=== PATIENT | female | born 1965 | race Caucasian/White ===

== ENCOUNTER 2023-06-13 05:55 | Day surgery (SDC) | payer OTHER, SELFPAY ==
[2023-06-13] MEDS: Lactated Ringers 1,000 ML 15 ML IV (06:25)
[2023-06-13 06:26] VITALS: BP 130/81; PULSE 74; RESP 18; TEMP 36.2; O2SAT 100; BMI 30.2
--- NOTE | 2023-06-13 07:08 | PCM.HP.BLA ---
History and Physical Date of Admission: 06/13/23 Pt presents with upper eyelid dermatochalasis. The patient is examined and there are no changes from the exam dated 05/27/23. Assessment & Plan Assessment/Plan (1) Limited peripheral vision: QUALIFIERS: Laterality: bilateral Qualified Code(s): H53.453 - Other localized visual field defect, bilateral (2) Dermatochalasis of both eyelids: QUALIFIERS: Eyelid: upper Qualified Code(s): H02.831 - Dermatochalasis of right upper eyelid; H02.834 - Dermatochalasis of left upper eyelid PLAN: Plan Dermatochalasis obstructing vision Informed consent obtained. Pt for bilateral upper blepharoplasty.
[2023-06-13] MEDS: Clindamycin 900 MG/50 ML BAG 75 MG IV (07:39)
[2023-06-13] MEDS: Tetracaine 0.5% Ophthalmic Bottle OPHTHALMIC (07:55)
[2023-06-13] MEDS: Povidone Iodine 30 ML Opthalmic Sol 1 DRP (08:00)
[2023-06-13] MEDS: Petrolatum,White 3.75GM OPTH.TUBE 1 APPLIC OPHTHALMIC (08:05)
[2023-06-13] MEDS: Lidocaine 1% /Epi 1:100 (20ml) 20 ML Vial (08:07)
[2023-06-13] MEDS: Epinephrine (1 mg/ml) 1 MG/ML VIAL (08:10)
[2023-06-13] MEDS: Erythromycin Base 1 OPTH.TUBE 3.5 APPLIC OPHTHALMIC (09:18)
[2023-06-13 09:35] VITALS: BP 124/73; BP 130/81; PULSE 70; RESP 16; TEMP 36.6; O2SAT 100
--- NOTE | 2023-06-13 09:36 | DCINST_ITS ---
Discharge Instructions Diet Discharge Diet: No restrictions Activity Additional Activity Instructions:: Keep head elevated (recliner position) to reduce bruising and swelling. Keep the cold compresses on continuously today. Follow instructions given in the office. Follow Up Care Please Follow Up With: Sonam Adair MD When: as directed Test Results: Test results from this visit will be discussed in further detail at your follow- up appointment, if applicable. Discharge Plan Admission Attending Provider: Sonam Adair Primary Care Provider: STEPHANIE THORNTON Discharge Orders/Prescriptions Prescriptions: No Action minoxidil 5 % foam 1 ea topical BID Patient Comments: POST-OP cephalexin 500 mg capsule 500 mg PO BID Qty: 10 0RF erythromycin 5 mg/gram (0.5 %) ointment 1 applic ophthalmic (eye) DAILY Qty: 3.5 0RF Rx Instructions: Apply to incision 1x a day and in the eyes at bedtime atorvastatin 20 mg tablet 20 mg PO QHS Referrals / Follow Up: STEPHANIE THORNTON [Other] Sonam Adair MD [Med Staff - Active Staff] - Disposition Disposition (needs filled in before D/C Order can be placed): Home, Self Care
--- NOTE | 2023-06-13 09:39 | PCM.OPRPT ---
Problems Associated Problem List Diagnoses (1) Limited peripheral vision: (2) Dermatochalasis of both eyelids: Report of Operation Date of Procedure: 06/13/23 Pre-Operative Diagnosis: Bilateral upper lid dermatochalasis obstructing peripheral vision Post-Operative Diagnosis: Same Surgery/Procedure Performed:: Bilateral upper blepharoplasty Surgeon: Sonam Adair Type of Anesthesia: General Estimated Blood Loss (mL): Minimal Description of Procedure: The procedure of upper blepharoplasty have been thoroughly reviewed with the patient and informed consent had been obtained. She is marked in the preop holding area prior to surgery. Her is with her today for surgery. Patient was brought to the operating room and placed under general anesthesia in the supine position. Care is taken to pad all pressure points, apply sequential compression stockings, and a warming blanket. The face is prepped and draped in the usual sterile fashion. We initially began with incising the incisions. Epinephrine soaked Codman patties are placed on the incision to facilitate hemostasis. The skin is taken off as a single layer. Meticulous hemostasis is ensured with bipolar cautery. Following this, a strip of orbicularis oculi is removed. Again hemostasis is assured. The incision is then tacked together with a fast-absorbing gut suture. Cool compresses were placed on the eye and we directed our attention to the opposite side where the identical procedure was performed. Following this, the skin incisions are closed with a running subcuticular Prolene suture. Cool compresses are placed on the eyes. The sutures are anchored at the yazidism and forehead. She tolerated the procedure well and was taken to the recovery area in an awake and stable condition. Needle and sponge counts are correct. Complications None Admit VTE Documentation VTE Mechan Device Prophylaxis: SCD's
[2023-06-13 09:45] VITALS: BP 119/76; BP 130/81; PULSE 75; RESP 16; O2SAT 95
[2023-06-13 09:53] VITALS: BP 127/65; BP 130/81; PULSE 71; RESP 16; TEMP 36.3; O2SAT 99
[2023-06-13 11:05] VITALS: BP 127/90; BP 130/81; PULSE 77; RESP 18; TEMP 35.9; O2SAT 95
== END 2023-06-13 11:55 | disposition home or self-care (01) ==
LOC: SDC 05:56 → AC 05:57
PROVIDERS: Referring Provider Plastic Surgery; Visit Provider Plastic Surgery
PROC: (CPT 15822; principal; 2023-06-13 07:15)
DX: H02.834 Dermatochalasis of left upper eyelid (principal); K21.9 Gastro-esophageal reflux disease without esophagitis; H53.453 Other localized visual field defect, bilateral; H02.831 Dermatochalasis of right upper eyelid
CPT/HCPCS: 15822; 00103; J7120; J2405